=== PATIENT | female | born 1960 | race Caucasian/White ===

== ENCOUNTER 2019-10-02 14:22 | Outpatient (CLI) | payer SELFPAY ==
--- NOTE | 2019-10-02 | MR_ITS ---
WS: [id number] MRI CERVICAL SPINE HISTORY: HYPERREFLEXIA COMPARISON: None available. Normal cervical alignment with no compression fracture or significant disc space narrowing. Signal within the cervical cord is normal. Visualized posterior fossa is unremarkable. Craniocervical junction, C1 and C2 relationship, odontoid process and soft tissues are normal. C2-C3: Normal. C3-C4: Very mild osteophytic ridging and shallow central disc protrusion. No stenosis. C4-C5: Normal. C5-C6: Mild osteophytic ridging without stenosis. C6-C7: Mild osteophytic ridging with a shallow central disc protrusion. No stenosis. C7-T1: Normal. Small bilateral foraminal disc protrusions at T3-4 without stenosis. MR/MR cervical spin wo con* [id number] IMPRESSION: 1. No significant stenosis or fracture. 2. Small disc protrusions as above. No cord contact or significant foraminal s tenosis.
== END 2019-10-02 14:23 | disposition home or self-care (01) ==
LOC: RADSHAW 14:23
PROVIDERS: Family Provider Internal Medicine; PCP Internal Medicine; Visit Provider Internal Medicine
DX: R29.2 Abnormal reflex (principal); M50.223 Other cervical disc displacement at C6-C7 level
CPT/HCPCS: 72141

== ENCOUNTER → 2020-11-01 10:39 | Outpatient (BNVA) | payer OTHER, SELFPAY | PROVIDERS: Family Provider Internal Medicine; PCP Internal Medicine; Visit Provider Surgery | DX: Z01.812 Encounter for preprocedural laboratory examination (principal); Z20.822 Contact with and (suspected) exposure to COVID-19 | CPT/HCPCS: 87635 ==

== ENCOUNTER 2020-11-07 07:26 | Day surgery (SDC) | payer SELFPAY ==
--- NOTE | 2020-11-07 07:36 | ANES.PREANE2 ---
Pre-Anesthetic Assessment Pre-Anesthetic Assessment: Height/Weight: Height 1.47 m Weight 51.71 kg Preop Diagnosis: screening Proposed Procedure: Operation Date: 11/07/20 09:00 Proposed Procedures p Colonoscopy 45771 Z12.11(Not Applicable) - Marcus Lomeli MD Familial anesthetic complications: None Was Beta Dorian taken within 24 hours: N/A Was Clonidine taken within 24 hours: N/A Last intake: > 8 hrs Social: Social History: No alcohol and No tobacco Exam: Pre-Anes Outpt Exam: alert, oriented x 3, clear to auscultation bilaterally and regular rate & rhythm Airway: Cervical ROM: WNL MP: 3 Dentition: Other (missing) GI: Comments: divertilitis hx Metabolic: Metabolic: Thyroid Anesthetic Plan: ASA status: 2 Anesthesia: MAC Risk of > 500 ml blood loss (7ml/kg in children): No PFSH Anesthesia PFSH: Medical History (Updated 07/03/19 @ 13:16 by Saturnino Mccarthy MD) Diverticula of colon Hypothyroidism Surgical History (Updated 07/03/19 @ 13:05 by Saturnino Mccarthy MD) History of section, classical Family History Family/Other Cancer Colon Social History Smoking and tobacco status: never smoked Alcohol intake: never Lives independently: Yes Household members: spouse Marital status: Current occupational status: employed History of recent travel: No Current gender identity: Female Data Anesthesia Cardiac Studies: No Data to Display
[2020-11-07 07:58] VITALS: BP 129/87; PULSE 93; RESP 18; TEMP 36.1; O2SAT 98
[2020-11-07] MEDS: sodium chloride 0.9% 1,000 ML 30 ML IV (08:13)
--- NOTE | 2020-11-07 09:34 | P.HP_ITS ---
Same Day Surgery H&P Indication for Procedure/HPI DATE OF PROCEDURE: November 07, 2020 CHIEF COMPLAINT/INDICATIONFOR SURGICAL PROCEDURE: screening colonoscopy PREOP DIAGNOSIS: screening colonoscopy PLANNED PROCEDRUE: Operation Date: 11/07/20 09:00 Proposed Procedures p Colonoscopy 32537 Z12.11(Not Applicable) - Marcus Lomeli MD Medications/Allergies* Home Medications Medication Instructions Recorded Confirmed Type levothyroxine 88 mcg tablet 88 mcg PO DAILY 07/03/19 11/07/20 History Allergies/Adverse Reactions Allergy/AdvReac Type Severity Reaction Status Date / Time No Known Allergies Allergy Unverified 10/02/20 13:33 Current Medications: Generic Name Dose Route Start Last Admin Trade Name Freq PRN Reason Stop Dose Admin Sodium Chloride 1,000 mls @ 30 mls/hr 11/07/20 08:00 11/07/20 08:13 Sodium Chloride 0.9% IV 11/08/20 07:59 30 mls/hr .Q24H RASHEEDA Administration Pertinent History/Comorbid Conditions* Medical History (Updated 07/03/19 @ 13:16 by Saturnino Mccarthy MD) Diverticula of colon Hypothyroidism Surgical History (Updated 07/03/19 @ 13:05 by Saturnino Mccarthy MD) History of section, classical Family History (Updated 07/03/19 @ 12:16 by Marina Osorio LPN) Cancer Family/Other Colon Social History Smoking and tobacco status: never smoked Alcohol intake: never Lives independently: Yes Household members: spouse Marital status: Current occupational status: employed History of recent travel: No Current gender identity: Female Pertinent Exam Findings alert, oriented x 3 and regular rate & rhythm Recommendations Surgery/Procedure today Coding Level of Care Code Acute Tool Profiling Machine Set Up Operator for Brooke Sutherland
[2020-11-07 10:15] VITALS: BP 117/87; PULSE 99; RESP 18; TEMP 36.4; O2SAT 96
[2020-11-07 10:28] VITALS: BP 123/69; PULSE 100; RESP 18; TEMP 36.6; O2SAT 95
== END 2020-11-07 11:18 | disposition home or self-care (01) ==
PROVIDERS: PCP Internal Medicine; Visit Provider Surgery
PROC: 0DJD8ZZ Inspection of Lower Intestinal Tract, Via Natural or Artificial Opening Endoscopic (ICD-10-PCS; CPT 45378; principal; 2020-11-07 09:00)
DX: Z12.11 Encounter for screening for malignant neoplasm of colon (principal); K57.32 Diverticulitis of large intestine without perforation or abscess without bleeding; E03.9 Hypothyroidism, unspecified
CPT/HCPCS: 45330; 96360; 96361; J2704; J7030

== ENCOUNTER 2020-11-20 08:09 | Outpatient (CLI) | payer SELFPAY ==
--- NOTE | 2020-11-20 08:54 | XR_ITS ---
WS: [id number] ABDOMEN KUB CLINICAL INFORMATION: Constipation. Incomplete colonoscopy. PreBarium enema. COMPARISON: None. FINDINGS: Normal bowel gas pattern. Scattered air normal caliber small and large bowel. Moderate fecal retentio n within the left descending colon and proximal sigmoid colon. XR/XR KUB [id number] Impression: 1. Moderate constipation in the left colon and sigmoid colon. 2. Otherwise normal bowel gas pattern.
== END 2020-11-20 08:10 | disposition home or self-care (01) ==
PROVIDERS: PCP Internal Medicine; Visit Provider Surgery
DX: K56.699 Other intestinal obstruction unspecified as to partial versus complete obstruction (principal); K59.00 Constipation, unspecified
CPT/HCPCS: 74018; 74270

== ENCOUNTER 2020-11-21 08:06 | Outpatient (CLI) | payer SELFPAY ==
--- NOTE | 2020-11-21 08:33 | FL_ITS ---
WS: [id number] Gastrografin enema, 11/21/2020 Clinical Data: STRICTURE OF SIGMOID COLON Comparison: None. Fluoroscopy time: 2.2 minutes Findings: Gastrografin was introduced in a retrograde fashion to fill the entire colon. The cecum was well outl ined. There was reflux into the small bowel. There were polyps and narrowing of the sigmoid colon. Th ere is a significant narrowing of 2 cm at the junction of the descending colon and sigmoid colon. Thi s narrowing could represent a stricture from diverticulitis or a sigmoid cancer. The postevacuation f ilm was unremarkable. There is contrast material within the kidneys. FL/FL barium enema [id number] Impression: 1. 2 cm narrowing of the junction of the descending colon and sigmoid colon whi ch could represent a stricture from diverticulitis or a cancer of the colon. 2. Sigmoid diverticula.
[2020-11-21] MEDS: diatrizoate meglumine 120 mL Sol PR (12:36)
== END 2020-11-21 08:07 | disposition home or self-care (01) ==
LOC: RAD 08:08
PROVIDERS: PCP Internal Medicine; Visit Provider Surgery
DX: K56.699 Other intestinal obstruction unspecified as to partial versus complete obstruction (principal); K57.30 Diverticulosis of large intestine without perforation or abscess without bleeding
CPT/HCPCS: 74270

== ENCOUNTER 2020-11-28 08:01 | Outpatient (CLI) | payer MEDICAID, SELFPAY ==
[2020-11-28] MEDS: iohexol 300 mg/mL 50 mL Btl PO (08:25)
--- NOTE | 2020-11-28 09:30 | CT_ITS ---
WS: [id number] CT ABDOMEN AND PELVIS WITH CONTRAST HISTORY: K56.699 - Other intestinal obstruction unspecified, possible stricture. TECHNIQUE: Imaging performed of the abdomen and pelvis with IV contrast. Single phase imaging of the abdomen. Coronal and sagittal reformats are submitted. All CT scans at [facility] use at least one of these dose optimization techniques: automated exposure control; mA and/or kV adjustment per patient size (includes targeted exams where dose is matched to clinical indication); or iterativ e reconstruction. IV CONTRAST: Omnipaque 300; 75 mL IV. Oral contrast: Yes. DLP: 851.12 mGycm COMPARISON: 11/21/2020 and 11/29/2017 Lower thorax: Lung bases are clear. Heart is normal size. Small hiatal hernia. Liver/biliary system: Normal size liver. Hepatic steatosis along the falciform ligament. Gallbladder: Normal. No gallstones or wall thickening. No pericholecystic fluid. Pancreas: Normal size pancreas and pancreatic duct. No adjacent inflammation. Spleen: Normal size spleen with several granulomata. Adrenal glands: Normal. Right kidney: Normal. Left kidney: Normal. Aorta: Normal. Lymphadenopathy: None. Free fluid: None. GI tract: Appendix is not identified. There is moderate diffuse constipation and fecal retention. Num erous diverticula in the descending and sigmoid colon. There is circumferential wall thickening invol ving a short segment of the sigmoid colon. This corresponds to the area seen by recent barium enema. The lumen is narrowed. The wall thickening is asymmetric. Abdominal wall: Unremarkable abdominal wall. No hernia. Pelvis: Normal size uterus. No free fluid or adenopathy. No mass. Bones: Unremarkable. CT/CT abdomen pelvis w con* [id number] IMPRESSION: 1. Sigmoid diverticulosis with asymmetric wall thickening. The wall thickening could be due to early neoplasm or chronic changes of diverticulosis. This area should be readily visible with colonoscopy. 2. No ascites or adenopathy. 3. Diffuse moderate constipation and fecal retention.
[2020-11-28] MEDS: iohexol 300 mg/mL 100 mL Btl IV (09:35)
== END 2020-11-28 08:02 | disposition home or self-care (01) ==
LOC: RADWPI 08:02
PROVIDERS: PCP Internal Medicine; Visit Provider Surgery
DX: K56.699 Other intestinal obstruction unspecified as to partial versus complete obstruction (principal); K57.30 Diverticulosis of large intestine without perforation or abscess without bleeding; K59.00 Constipation, unspecified
CPT/HCPCS: 74177; Q9967

== ENCOUNTER → 2021-01-02 11:31 | Outpatient (BNVA) | payer MEDICAID, SELFPAY | PROVIDERS: PCP Internal Medicine; Visit Provider Surgery | DX: K56.699 Other intestinal obstruction unspecified as to partial versus complete obstruction (principal); Z20.822 Contact with and (suspected) exposure to COVID-19 | CPT/HCPCS: 87635 ==

== ENCOUNTER → 2021-01-21 12:58 | Outpatient (BNVA) | payer MEDICAID, SELFPAY | PROVIDERS: PCP Internal Medicine; Visit Provider Surgery | DX: K56.699 Other intestinal obstruction unspecified as to partial versus complete obstruction (principal); Z20.822 Contact with and (suspected) exposure to COVID-19 | CPT/HCPCS: 87635 ==

== ENCOUNTER 2021-01-27 11:45 | Inpatient (IN) | payer MEDICAID, SELFPAY ==
[2021-01-24 09:06] VITALS: BMI 24.0
[2021-01-27] VITALS (26 sets, daily range): BP systolic 107–136; BP diastolic 58–86; PULSE 68–87; RESP 12–22; TEMP 36.3–37.2; O2SAT 94–100; BMI 24.0
--- NOTE | 2021-01-27 06:33 | ANES.PREANE2 ---
Pre-Anesthetic Assessment Pre-Anesthetic Assessment: Height/Weight: Height 1.47 m Weight 52.163 kg Temp Pulse Resp BP Pulse Ox 97.3 F L 72 16 115/80 96 01/27/21 06:13 01/27/21 06:13 01/27/21 06:13 01/27/21 06:13 01/27/21 06:13 Preop Diagnosis: sigmoid stricture Proposed Procedure: Operation Date: 01/27/21 07:00 Proposed Procedures p Laparoscopic Sigmoidectomy 09421 K56.699(Not Applicable) - Marcus Lomeli MD Familial anesthetic complications: None Was Beta Dorian taken within 24 hours: N/A Was Clonidine taken within 24 hours: N/A Last intake: Intake Last Liquid Date 01/26/21 Last Liquid Time 22:00 Last Solid Date 01/25/21 Last Solid Time 12:00 Social: Social History: No alcohol and No tobacco Exam: Pre-Anes Outpt Exam: alert, oriented x 3, clear to auscultation bilaterally and regular rate & rhythm Airway: Cervical ROM: WNL MP: 2 Dentition: Other (missing) Metabolic: Metabolic: Thyroid Anesthetic Plan: ASA status: 3 Anesthesia: General Risk of > 500 ml blood loss (7ml/kg in children): No PFSH Anesthesia PFSH: Medical History Diverticula of colon Hypothyroidism Surgical History H/O flexible sigmoidoscopy (11/07/20) History of section, classical Family History Family/Other Cancer Colon Social History Alcohol intake: never Lives independently: Yes Household members: spouse Marital status: Current occupational status: employed History of recent travel: No Current gender identity: Female Data Anesthesia Cardiac Studies: No Data to Display
[2021-01-27] MEDS: sodium chloride 0.9% 1,000 ML 30 ML IV (06:50)
[2021-01-27 06:55] LABS: Basophils % 0.7 %; Eosinophils # 0.1 10^3/uL (0.0-0.8); Eosinophils % 1.9 %; Hematocrit 40.7 % (37.0-47.0); Hemoglobin 13.1 g/dL (11.5-15.3); Lymphocytes % 33.1 %; Mean Corpuscular HGB Conc 32.2 g/dL (30.0-36.0); Mean Corpuscular Hemoglobin 30.3 pg (28.0-34.0); Mean Platelet Volume 9.9 fL (7.4-10.4); Monocytes # 0.5 10^3/uL (0.2-0.9); Monocytes % 8.6 %; Neutrophils # 3.27 10^3/uL (1.8-7.7); Neutrophils % 55.4 %; Nucleated Red Blood Cells % 0 %; Platelet Count 277 10^3/cmm (130-400); Red Blood Count 4.33 10^6/uL (4.1-5.3); Red Cell Distribution Width 12.3 % (12.1-15.1); White Blood Count 5.9 10^3/uL (4.0-10.0)
--- NOTE | 2021-01-27 06:55 | P.HP_ITS ---
Providers/Chief Complaint Admitting Physician: Armani Primary Care Provider: Aida Gutiérrez MD Chief Complaint: sigmoidectomy History of Present Illness Roselia Leahy is a 60 year old female who had undergone a screening colonoscopy and I could not pass the colonoscope past 20 cm. A subsequent barium enema and CT abdomen pelvis had shown a stricture in the sigmoid colon. Patient continues to have constipation where she has 1 bowel movement a day whereas previously she is to have daily bowel movement Review of Systems General: Reports: 10 or more systems reviewed and unremarkable except in HPI and below Medications/Allergies Home Medications Medication Instructions Recorded Confirmed Last Taken Type levothyroxine 88 mcg tablet 88 mcg PO DAILY 07/03/19 01/27/21 01/26/21 History erythromycin 500 mg tablet 500 mg PO ONCE #3 tab 01/03/21 01/27/21 01/26/21 Rx neomycin 500 mg tablet 1 g PO ONCE #6 tab 01/03/21 01/27/21 01/26/21 Rx Allergies Allergy/AdvReac Type Severity Reaction Status Date / Time No Known Allergies Allergy Verified 01/27/21 06:10 PFSH PFSH: Medical History Diverticula of colon Hypothyroidism Surgical History H/O flexible sigmoidoscopy (11/07/20) History of section, classical Family History Family/Other Cancer Colon Social History Alcohol intake: never Lives independently: Yes Household members: spouse Marital status: Current occupational status: employed History of recent travel: No Current gender identity: Female Dietary Habits: Caffeine: Yes Caffeine intake frequency: coffee Number of coffee servings: 6 Vital Signs Vitals Signs: Last Vital Signs Temp 97.3 F L 01/27/21 06:13 Pulse 72 01/27/21 06:13 Resp 16 01/27/21 06:13 BP 115/80 01/27/21 06:13 Pulse Ox 96 01/27/21 06:13 Physical Exam Narrative: EXAM NARRATIVE: HEENT: Normocephalic Eye: Sclera /conjunctiva normal Abdomen: Soft to palpation Neurological: Oriented to place person and time Skin: Intact, no lesions appreciated on gross exam A&P Assessment and plan (1) Stricture of sigmoid colon: Plan for laparoscopic possible open sigmoid colectomy under general anesthesia Procedure, risks, benefits and alternatives have been discussed with the patient who wishes to proceed with surgery. Status: Acute Coding Level of Care Code Acute Baton Twirler for [facility] Fwd Diagnoses Stricture of sigmoid colon K56.699
[2021-01-27] MEDS: metroNIDAZOLE IV 500 MG/100 ML PREMIX 100 MG IV ×2 (07:05→15:04)
[2021-01-27 07:44] LABS: Carcinoembryonic Antigen 3.3 ng/mL (0.0-4.7)
--- NOTE | 2021-01-27 08:58 | SUR.OPER ---
0750 updated of surgical status. 0859 updated of surgical status.
--- NOTE | 2021-01-27 10:08 | SUR.OPER ---
updated of surgical status
--- NOTE | 2021-01-27 10:40 | PM.OP ---
Operative Report Date of procedure: January 27, 2021 Pre-op Diagnosis: Sigmoid stricture Post-op Diagnosis: Sigmoid stricture No evidence of peritoneal carcinomatosis or liver metastasis Procedure Done: Laparoscopic sigmoid colectomy with 29 mm stapled EEA stapled anastomosis Flexible sigmoidoscopy Specimens removed/disposition: 1. Sigmoid colon, stapled and distal 2. Proximal donut from EEA anastomosis 3. Distal donut from EEA anastomosis Surgeon: Marcus Lomeli Anesthesia: General Estimated blood loss (mL): 25 IV fluids (mL): 1,000 Urine output (mL): 200 Procedure: The patient was taken to the operating room, intubated under general anesthesia after IV antibiotic had been administered. The patient was placed in modified lithotomy position with shoulder support and the Paulson catheter was placed. The rectum was irrigated with diluted Betadine using red rubber catheter. The abdomen and the perineum was prepped and draped in a sterile manner. Using a 15 blade, a midline supraumbilical incision was made and using open Young technique the peritoneal cavity was entered, 12 mm port was placed and 15 mm of pneumoperitoneum was created. A 10 mm 30? scope was introduced. 5 mm ports were placed in the left lower quadrant and at the level of the umbilicus on the right side under direct visualization in the midclavicular line and and a 12 mm port was placed in the right lower quadrant. Examination of the colon revealed a a mass within the sigmoid colon which was adherent to the uterus, right fallopian tube and ovary, no signs of liver lesions or peritoneal carcinomatosis. The patient was placed in steep Trendelenburg position and rotated to the right in order to place a small bowel loops in the right upper quadrant. The transverse colon was retracted superiorly. Using electrocautery and sharp dissection the adherent sigmoid colon was freed from the right ovary and fallopian tube as well as the abdominal wall. The inferior mesenteric artery was identified near its takeoff by retracting on the sigmoid colon anteriorly. The peritoneum opened and dissection was carried posterior to the artery until the ureter was identified. A medial to lateral dissection of the sigmoid mesocolon was performed. There were adhesions of the sigmoid colon to the abdominal wall which were taken down. The line of Toldt was opened along the descending colon up to the splenic flexure and the avascular plane was entered to mobilize the descending colon medially. The sigmoid mesocolon was divided using Endo ALHAJI device down to the proximal rectum to ensure there was at least 5 cm distal margin. 2 loads of 45 mm blue load [place] ALHAJI stapler was introduced through the right lower quadrant port to divide the rectum distally. At this point it appeared that the descending colon reached up to the rectum and the midline umbilical incision was extended up the pneumoperitoneum was released and a wound protector was placed and the divided sigmoid colon was exteriorized. A noncrushing bowel clamps were placed in the descending colon and an Autosuture pursestring was placed and the colon was divided and the specimen removed from the operating field. Serial anal dilators were used and it was decided to proceed with the 29 mm EEA stapler. The anvil of the EEA stapler was introduced into the descending colon and tied down. The colon was introduced into the peritoneal cavity and the pneumoperitoneum was recreated. 20 cc of saline mixed with 20 cc of Exparel mixed in 20cc of 0.5% Marcaine was infiltrated under laparoscopic visualization bilaterally for a TAP block as well as around the umbilical incision. The anus was digitally dilated and the EEA stapler was introduced through the anal canal and the trocar passed through the previously created staple line and attached to the anvil after ensuring that there was no twisting of the mesentery. The EEA stapler was fired to create the stapled 29 mm end-to-end anastomosis and 2 intact doughnuts were retrieved which were sent as proximal margin and distal margin. A colonoscope was introduced and passed beyond the anastomosis into the descending colon and air leak test was negative. There was no bleeding noted from the staple line. Anastomosis was around 12 cm from the anal verge. There was no significant bleeding noted from the staple line. The colonoscope was withdrawn. All 4 ports were removed under direct visualization and the fascia the midline was closed using #1 loop PDS. The fascia of the right lower quadrant port was closed using [id number] 0 Vicryl suture. The subcutaneous tissue was approximated using 3-0 Vicryl suture and skin was closed using running subcuticular 4-0 Monocryl suture and Dermabond. The patient was subsequently extubated and transferred to recovery room with a Paulson catheter in place.
--- NOTE | 2021-01-27 10:57 | P.PCN_ITS ---
PACU note PACU note: VSS, Good respiratory effort, report to CELL ASSEMBLY PINNER Post-Anesthesia Exam: awake
--- NOTE | 2021-01-27 10:57 | PM.PACU ---
PACU note PACU note: VSS, Good respiratory effort, report to RECYCLE COORDINATOR Post-Anesthesia Exam: awake
[2021-01-27] MEDS: fentaNYL 50 mcg/mL INJ 2mL IVP ×2 (11:17→11:24)
[2021-01-27] MEDS: D5-NS 0.45% + KCL 20 mEq 20 MEQ/1,000 ML BAG 100 MEQ IV (15:02)
[2021-01-27] MEDS: famotidine 20 mg/2 mL INJ IVP (15:07)
[2021-01-27] MEDS: morphine 4 mg/mL SDV 1 mL 3 MG IVP ×2 (15:12→18:38)
--- NOTE | 2021-01-27 16:00 | ANE.PACU2 ---
Inpatient post-anesthesia follow up: Airway intact: Yes Vital signs: Temperature 97.4 F Pulse Rate 76 Respiratory Rate 16 Blood Pressure 132/67 Pulse Oximetry 94 Oxygen Delivery Me thod Room Air Oxygen Flow Rate 6 Fraction of Inspir ed Oxygen Hydration adequate: Yes Nausea and vomiting: No Pain level: 2 Mental status: Baseline
[2021-01-27] MEDS: sennosides-docusate Tablet 1 TAB PO (17:58)
[2021-01-28] VITALS (7 sets, daily range): BP systolic 100–134; BP diastolic 58–85; PULSE 54–89; RESP 18–22; TEMP 36.6–37; O2SAT 93–98
[2021-01-28] MEDS: metroNIDAZOLE IV 500 MG/100 ML PREMIX 100 MG IV ×4 (00:03→23:55)
[2021-01-28 02:25] LABS: Basophils % 0.2 %; Hematocrit 34.5 % (37.0-47.0); Hemoglobin 10.9 g/dL (11.5-15.3); Lymphocytes % 7.8 %; Mean Corpuscular HGB Conc 31.6 g/dL (30.0-36.0); Mean Corpuscular Hemoglobin 30.4 pg (28.0-34.0); Mean Corpuscular Volume 96.1 fl (81-99); Mean Platelet Volume 9.6 fL (7.4-10.4); Monocytes # 0.7 10^3/uL (0.2-0.9); Monocytes % 5.2 %; Neutrophils # 11.47 10^3/uL (1.8-7.7); Neutrophils % 86.5 %; Nucleated Red Blood Cells % 0 %; Platelet Count 209 10^3/cmm (130-400); Red Blood Count 3.59 10^6/uL (4.1-5.3); Red Cell Distribution Width 12.6 % (12.1-15.1); White Blood Count 13.3 10^3/uL (4.0-10.0)
[2021-01-28 02:42] LABS: Anion Gap 14.5 (5-19); Blood Urea Nitrogen 6 mg/dL (6-20); Calcium 8.5 mg/dL (8.5-10.5); Carbon Dioxide 23 mmol/L (22-29); Chloride 105 mmol/L (98-107); Glomerular Filtration Rate 102.3 mL/min (90-130); Glucose 171 mg/dL (65-115); Osmolality Calculated 288 mOsm/kg (285-295); Potassium 4.5 mmol/L (3.5-5.1); Sodium 138 mmol/L (136-145)
[2021-01-28] MEDS: famotidine 20 mg/2 mL INJ IVP ×2 (04:21→15:19)
[2021-01-28] MEDS: ondansetron 2 mg/ML SDV 2 mL 4 MG IVP (04:21)
[2021-01-28] MEDS: HYDROcodone-acetaminophen 5-325 mg Tablet 1 TAB PO ×2 (04:21→15:19)
[2021-01-28] MEDS: D5-NS 0.45% + KCL 20 mEq 20 MEQ/1,000 ML BAG 100 MEQ IV ×2 (04:22→15:19)
[2021-01-28] MEDS: morphine 4 mg/mL SDV 1 mL 3 MG IVP ×2 (04:27→08:10)
--- NOTE | 2021-01-28 07:51 | PM.PN ---
Subjective Subjective: Interval history: patient has been doing well, denies nausea, vomiting, flatus or BM, slept a few hours last night Vitals/I&O/Wt Last Vital Signs Temp 98.4 F 01/28/21 04:27 Pulse 76 01/28/21 04:27 Resp 18 01/28/21 04:27 BP 134/79 01/28/21 04:27 Pulse Ox 97 01/28/21 04:27 01/27/21 01/28/21 01/28/21 22:59 06:59 14:59 Intake Total 520 / 3830 1150 / 3830 Output Total 120 / 1545 1000 / 1545 Balance 400 / 2285 150 / 2285 Weight last 48 hrs Weight 115 lb Physical Exam Narrative: EXAM NARRATIVE: Abdomen soft, nontender distended, tender, incision clean dry and intact Urinary Catheter Management^: Paulson: Cath Placed During This Visit: yes Urinary Catheter Date of Insertion: 01/27/21 Urinary Catheter Time of Insertion: 07:30 Data : 01/28/21 02:10 01/28/21 02:10 A&P Assessment and plan (1) S/P laparoscopic-assisted sigmoidectomy: With postop ileus DC IV fluids WBC 13.3, afebrile: Continue IV Ancef and Flagyl since there was inflammation noted in the sigmoid colon DC Paulson Start clear liquid diet Ambulate ad amador. Lovenox SCD for DVT prophylaxis Pepcid for GI prophylaxis Patient will need greater than 2 nights of inpatient stay to ensure resolution of ileus and rule out complications Status: Acute Attestations Medical Necessity Statement*: Postop requiring continued inpatient stay Coding Level of Care Code Acute Community Affairs Manager for Chg Fwd Diagnoses S/P laparoscopic-assisted sigmoidectomy Z90.49
[2021-01-28] MEDS: sennosides-docusate Tablet 1 TAB PO ×2 (08:18→17:23)
--- NOTE | 2021-01-28 08:32 | PC.NURSE ---
Catheter removed at 0833. 1700 mL drained from bag prior to removal of catheter. Urine color was clear and yellow. 10 mL removed from bulb of catheter. Patient tolerated removal very well. Tip of catheter intact, No discoloration.
--- NOTE | 2021-01-28 08:53 | PC.CHAP ---
Pastoral Care Encounter/Spiritual Assessment Type of Contact [] Declined director geophysical laboratory visit [] Patient/Family/Request visit [] Outpatient visit [] Follow-up visit [] Physician referral [] Code/Alert [x] Routine visit [] Staff referral [] Actively dying [] Patient sleeping [] Family support [] [] Out of room [] Palliative care [] [] Receiving care in room [] Pre-surgical visit [] Trauma [] Long length of stay [] ICU visit [] Other: Relational/Emotional Strength [x] Patient feels connected with others/family/visitors/staff [] Distress [] Loneliness/isolation [] Abandonment Spirituality of Patient [x] Person of Noemy [] Attends Episcopalian of their Noemy [x] Believes in Prayer [] Reads Bible or Mormon materials [] There are Spiritual issues to be addressed Desktop Analyst Interventions x[x] Prayer [] Active listening [] Non-anxious presence [] Spiritual/emotional support [] Crisis/trauma care [x] Spiritual counseling [] Bereavement support [] Provided bereavement packet [] Provided Bible/devotional materials [] Provided toy/stuffed animal, coloring book to patient or family member [] Provided Communion [] Anointing/[place] [] Salvation x[] Completed spiritual assessment [] Other: Impact on Illness or Injury [] Angry [] Fearful [] Anxious [] Often cries [] Exhaustion [] Unable to work [] Unable to attend jehovah's witness [] Unable to walk/stand [] Unable to read [] Unable to drive [] Unable to eat/drink [] Unable to sleep [] Unable to be with family [] Patient intubated [] Other: Summary Time spent with patient 15 min
[2021-01-28] MEDS: enoxaparin 40 mg/0.4 mL Syringe SUBCUT (08:56)
--- NOTE | 2021-01-28 17:28 | PC.NURSE ---
ambulate pt walked 2 xs north and south stations
[2021-01-29] VITALS (7 sets, daily range): BP systolic 102–135; BP diastolic 61–81; PULSE 65–81; RESP 16–18; TEMP 36.6–37.1; O2SAT 95–97
[2021-01-29] MEDS: HYDROcodone-acetaminophen 5-325 mg Tablet 1 TAB PO ×3 (00:02→16:36)
[2021-01-29 03:21] LABS: Basophils % 0.1 %; Eosinophils % 0.3 %; Hematocrit 30.5 % (37.0-47.0); Hemoglobin 9.7 g/dL (11.5-15.3); Lymphocytes # 2.3 10^3/uL (0.8-4.8); Lymphocytes % 21.3 %; Mean Corpuscular HGB Conc 31.8 g/dL (30.0-36.0); Mean Corpuscular Hemoglobin 30.4 pg (28.0-34.0); Mean Corpuscular Volume 95.6 fl (81-99); Mean Platelet Volume 10.3 fL (7.4-10.4); Monocytes # 0.5 10^3/uL (0.2-0.9); Monocytes % 4.9 %; Neutrophils # 7.95 10^3/uL (1.8-7.7); Nucleated Red Blood Cells % 0 %; Platelet Count 198 10^3/cmm (130-400); Red Blood Count 3.19 10^6/uL (4.1-5.3); Red Cell Distribution Width 12.9 % (12.1-15.1); White Blood Count 10.9 10^3/uL (4.0-10.0)
[2021-01-29 03:37] LABS: Anion Gap 12.2 (5-19); Blood Urea Nitrogen 5 mg/dL (6-20); Calcium 8.5 mg/dL (8.5-10.5); Carbon Dioxide 27 mmol/L (22-29); Chloride 104 mmol/L (98-107); Glomerular Filtration Rate 85.6 mL/min (90-130); Glucose 107 mg/dL (65-115); Osmolality Calculated 286 mOsm/kg (285-295); Potassium 4.2 mmol/L (3.5-5.1); Sodium 139 mmol/L (136-145)
[2021-01-29] MEDS: D5-NS 0.45% + KCL 20 mEq 20 MEQ/1,000 ML BAG 100 MEQ IV ×2 (04:05→14:23)
[2021-01-29] MEDS: famotidine 20 mg/2 mL INJ IVP ×2 (04:34→16:18)
[2021-01-29] MEDS: metroNIDAZOLE IV 500 MG/100 ML PREMIX 100 MG IV ×2 (07:42→14:54)
[2021-01-29] MEDS: ondansetron 2 mg/ML SDV 2 mL 4 MG IVP (08:12)
--- NOTE | 2021-01-29 10:09 | P.PN_ITS ---
Subjective Subjective: Interval history: Patient feels a bit nauseated today, denies significant abdominal pain, no flatus or BM Vitals/I&O/Wt Last Vital Signs Temp 98 F 01/29/21 07:39 Pulse 69 01/29/21 07:39 Resp 18 01/29/21 07:39 BP 131/74 01/29/21 07:39 Pulse Ox 96 01/29/21 07:39 01/28/21 01/29/21 01/29/21 22:59 06:59 14:59 Intake Total 160 / 3740 1280 / 3740 100 / 100 Output Total 1000 / 3200 500 / 3200 1000 / 1000 Balance -840 / 540 780 / 540 -900 / -900 Weight last 48 hrs Weight 115 lb Physical Exam Narrative: EXAM NARRATIVE: Abdomen: Soft, tender, mildly distended, incision clean dry and intact Urinary Catheter Management^: Paulson: Cath Placed During This Visit: yes, but has since been removed by the nurse Reason for Continuing Indwelling Catheter: Decision to DC Catheter Urinary Catheter Date of Insertion: 01/27/21 Urinary Catheter Time of Insertion: 07:30 Date Urinary Catheter Removed: 01/28/21 Time Urinary Catheter Discontinued: 08:37 Data : 01/29/21 02:15 01/29/21 02:15 A&P Assessment and plan (1) S/P laparoscopic-assisted sigmoidectomy: With postop ileus WBC down to 10.9, afebrile: Continue IV Ancef and Flagyl since there was inflam mation noted in the sigmoid colon Start clear liquid diet Ambulate ad amador. Lovenox SCD for DVT prophylaxis Pepcid for GI prophylaxis Patient will need greater than 2 nights of inpatient stay to ensure resolution of ileus and rule out complications Status: Acute Attestations Medical Necessity Statement*: Status post sigmoid colectomy requiring continued inpatient stay to ensure resolution of ileus Coding Level of Care Code Acute Trail Maintenance Worker for Ch[facility] Fwd Diagnoses S/P laparoscopic-assisted sigmoidectomy Z90.49
[2021-01-29] MEDS: enoxaparin 40 mg/0.4 mL Syringe SUBCUT (10:18)
[2021-01-29] MEDS: sennosides-docusate Tablet 1 TAB PO ×2 (10:21→18:35)
--- NOTE | 2021-01-29 11:27 | PC.NURSE ---
She has no pain if she lays completely still, but reports a pain level of 7/10 if she is moving.
[2021-01-29] MEDS: morphine 4 mg/mL SDV 1 mL 3 MG IVP (14:18)
[2021-01-30] VITALS (7 sets, daily range): BP systolic 110–129; BP diastolic 66–75; PULSE 60–110; RESP 12–18; TEMP 36.6–36.9; O2SAT 95–98
[2021-01-30] MEDS: metroNIDAZOLE IV 500 MG/100 ML PREMIX 100 MG IV ×2 (00:22→07:59)
[2021-01-30] MEDS: morphine 4 mg/mL SDV 1 mL 3 MG IVP (00:56)
[2021-01-30] MEDS: D5-NS 0.45% + KCL 20 mEq 20 MEQ/1,000 ML BAG 100 MEQ IV ×2 (00:57→10:17)
[2021-01-30 03:14] LABS: Basophils % 0.4 %; Eosinophils # 0.1 10^3/uL (0.0-0.8); Eosinophils % 1.3 %; Hematocrit 34.3 % (37.0-47.0); Hemoglobin 10.7 g/dL (11.5-15.3); Lymphocytes # 1.3 10^3/uL (0.8-4.8); Lymphocytes % 16.8 %; Mean Corpuscular HGB Conc 31.2 g/dL (30.0-36.0); Mean Corpuscular Hemoglobin 30.7 pg (28.0-34.0); Mean Corpuscular Volume 98.6 fl (81-99); Mean Platelet Volume 10.1 fL (7.4-10.4); Monocytes # 0.5 10^3/uL (0.2-0.9); Monocytes % 6.8 %; Neutrophils # 5.54 10^3/uL (1.8-7.7); Neutrophils % 74.3 %; Nucleated Red Blood Cells % 0 %; Platelet Count 199 10^3/cmm (130-400); Red Blood Count 3.48 10^6/uL (4.1-5.3); Red Cell Distribution Width 13.1 % (12.1-15.1); White Blood Count 7.5 10^3/uL (4.0-10.0)
[2021-01-30 03:45] LABS: Anion Gap 12.2 (5-19); Blood Urea Nitrogen 4 mg/dL (6-20); Calcium 9.2 mg/dL (8.5-10.5); Carbon Dioxide 30 mmol/L (22-29); Chloride 104 mmol/L (98-107); Glomerular Filtration Rate 85.6 mL/min (90-130); Glucose 110 mg/dL (65-115); Osmolality Calculated 292 mOsm/kg (285-295); Potassium 4.2 mmol/L (3.5-5.1); Sodium 142 mmol/L (136-145)
[2021-01-30] MEDS: famotidine 20 mg/2 mL INJ IVP (04:41)
[2021-01-30] MEDS: HYDROcodone-acetaminophen 5-325 mg Tablet 1 TAB PO ×3 (06:29→18:26)
[2021-01-30] MEDS: sennosides-docusate Tablet 1 TAB PO ×2 (08:00→17:11)
[2021-01-30] MEDS: enoxaparin 40 mg/0.4 mL Syringe SUBCUT (10:17)
--- NOTE | 2021-01-30 13:07 | P.PN_ITS ---
Subjective Subjective: Interval history: Patient has some abdominal pain with nausea but no vomiting, tolerating full liquid diet, passing flatus, no BM Vitals/I&O/Wt Last Vital Signs Temp 98.4 F 01/30/21 07:28 Pulse 65 01/30/21 07:28 Resp 16 01/30/21 07:28 BP 110/66 01/30/21 07:28 Pulse Ox 97 01/30/21 07:28 01/29/21 01/30/21 01/30/21 22:59 06:59 14:59 Intake Total 200 / 2351.667 1001.667 / 2351.667 1295.000 / 1295.000 Output Total 500 / 2400 Balance -300 / -48.333 1001.667 / -48.333 1295.000 / 1295.000 Physical Exam Narrative: EXAM NARRATIVE: Abdomen: Soft, minimally tender, minimally distended, incision clean dry and intact Urinary Catheter Management^: [place]on: Cath Placed During This Visit: yes, but has since been removed by the nurse Reason for Continuing Indwelling Catheter: Decision to DC Catheter Urinary Catheter Date of Insertion: 01/27/21 Urinary Catheter Time of Insertion: 07:30 Date Urinary Catheter Removed: 01/28/21 Time Urinary Catheter Discontinued: 08:37 Data : 01/30/21 02:40 01/30/21 02:40 A&P Assessment and plan (1) S/P laparoscopic-assisted sigmoidectomy: With postop ileus WBC down to 10.9, afebrile: DC Ancef and Flagyl, start oral Levaquin and Flagyl Full liquid diet Ambulate ad amador. Lovenox SCD for DVT prophylaxis Pepcid for GI prophylaxis Patient will need greater than 2 nights of inpatient stay to ensure resolution of ileus and rule out complications Status: Acute Attestations Medical Necessity Statement*: Status post sigmoid colectomy requiring continued inpatient stay Coding Level of Care Code Acute Erp Business Analyst for Chg Fwd Diagnoses S/P laparoscopic-assisted sigmoidectomy Z90.49
[2021-01-30] MEDS: metroNIDAZOLE 500 MG Tablet PO ×2 (14:25→20:14)
[2021-01-30] MEDS: ondansetron 2 mg/ML SDV 2 mL 4 MG IVP (22:28)
[2021-01-31] VITALS: BP 105/62; PULSE 67; RESP 16; TEMP 36.9; O2SAT 96
[2021-01-31 01:42] VITALS: BP 120/76
[2021-01-31 01:57] VITALS: RESP 16
[2021-01-31] MEDS: morphine 4 mg/mL SDV 1 mL 3 MG IVP (01:57)
[2021-01-31 04:16] VITALS: BP 119/70; PULSE 70; RESP 16; TEMP 36.7; O2SAT 97
[2021-01-31] MEDS: levoFLOXacin 500 mg Tablet PO (05:06)
--- NOTE | 2021-01-31 07:07 | PM.PN ---
Subjective Subjective: Interval history: Patient feeling a lot better, no BMs yet, no nausea or vomiting, tolerating full liquid diet Vitals/I&O/Wt Last Vital Signs Temp 98.1 F 01/31/21 04:16 Pulse 70 01/31/21 04:16 Resp 16 01/31/21 04:16 BP 119/70 01/31/21 04:16 Pulse Ox 97 01/31/21 04:16 01/30/21 01/31/21 01/31/21 22:59 06:59 14:59 Intake Total 720 / 2375.000 360 / 2375.000 Output Total 500 / 1800 1300 / 1800 Balance 220 / 575.000 -940 / 575.000 Physical Exam Narrative: EXAM NARRATIVE: Abdomen: Soft, nontender, nondistended, incisions healing well Urinary Catheter Management^: Paulson: Cath Placed During This Visit: yes, but has since been removed by the nurse Reason for Continuing Indwelling Catheter: Decision to DC Catheter Urinary Catheter Date of Insertion: 01/27/21 Urinary Catheter Time of Insertion: 07:30 Date Urinary Catheter Removed: 01/28/21 Time Urinary Catheter Discontinued: 08:37 Data : 01/30/21 02:40 01/30/21 02:40 A&P Assessment and plan (1) S/P laparoscopic-assisted sigmoidectomy: With postop ileus, resolving DC home today Status: Acute Attestations Medical Necessity Statement*: DC home today Coding Level of Care Code Acute Arts Therapist for Chg Fwd Diagnoses S/P laparoscopic-assisted sigmoidectomy Z90.49
--- NOTE | 2021-01-31 07:09 | P.DS_ITS ---
Discharge Providers Date of Admission: 01/27/21 11:45 Date of Discharge: January 31, 2021 Attending Provider at Admission: Marcus Lomeli MD Attending Provider at Discharge: Marcus Lomeli MD Primary Care Provider: Aida Gutiérrez MD Diagnoses at Discharge Discharge Diagnosis (1) S/P laparoscopic-assisted sigmoidectomy: Status: Acute Reason for Visit Reason for Visit: sigmoidectomy Hospital Course Hospital Course Roselia Leahy is a 60 year old female who had undergone a screening colonoscopy and I could not pass the colonoscope past 20 cm. A subsequent barium enema and CT abdomen pelvis had shown a stricture in the sigmoid colon. Patient continues to have constipation where she has 1 bowel movement a week whereas previously she is to have daily bowel movement Patient underwent elective laparoscopic sigmoid colectomy. By postop day 2, abner rodrigueznt was fully passing flatus. At time of discharge patient is tolerating a full liquid diet, vital signs are stable, incision is clean dry and intact Physical Exam Urinary Catheter Management^: Paulson: Cath Placed During This Visit: yes, but has since been removed by the nurse Reason for Continuing Indwelling Catheter: Decision to DC Catheter Urinary Catheter Date of Insertion: 01/27/21 Urinary Catheter Time of Insertion: 07:30 Date Urinary Catheter Removed: 01/28/21 Time Urinary Catheter Discontinued: 08:37 Discharge Data Data Completed and Pending: Pending at discharge Category Date Time Status ES surgery / GI i mages Routine Exams 01/27/21 06:48 Taken Pathology: Surgic al [PTH] Routine Pth 01/27/21 10:22 Received Vitals: Last Vital Signs Temp 98.1 F 01/31/21 04:16 Pulse 70 01/31/21 04:16 Resp 16 01/31/21 04:16 BP 119/70 01/31/21 04:16 Pulse Ox 97 01/31/21 04:16 Discharge Plan Discharge Patient Disposition: Home Condition: Stable Prescriptions: New hydrocodone-acetaminophen 5-325 mg tablet 1 tab PO Q6H PRN (Reason: pain) Qty: 20 RF: 0 ondansetron HCl [Zofran] 4 mg tablet 4 mg PO Q6H PRN (Reason: nausea and vomiting) Qty: 20 RF: 0 sennosides-docusate sodium [Senna with Docusate Sodium] 8.6-50 mg tablet 1 tab-cap PO BID Qty: 30 RF: 0 metronidazole [Flagyl] 500 mg tablet 500 mg PO Q8H 5 Days Qty: 15 RF: 0 levofloxacin 750 mg tablet 750 mg PO DAILY 5 Days RF: 0 lactulose 10 gram/15 mL solution 15 ml PO BEDTIME Qty: 237 RF: 2 Continued levothyroxine [Synthroid] 88 mcg tablet 88 mcg PO DAILY RF: 0 Discontinued neomycin 500 mg tablet 1 g PO ONCE Qty: 6 RF: 0 erythromycin 500 mg tablet 500 mg PO ONCE Qty: 3 RF: 0 Discharge Orders: Discharge Order (Routine); Ordered 01/31/21 Ordered By: Marcus Lomeli Referrals: Marcus Lomeli MD [Physician] - 2 weeks Patient Instructions: Opioid Safety Activity Restrictions/Additional Instructions: Diet GI soft diet, increase fluid intake as much as possible. Try to have 4-5 small meals a day rather than 3 scheduled meals, limit intake of red meat and salads Activity Avoid strenuous activity for 2 weeks but continue with daily activities including walking as tolerated. Do not lift more than 10 pounds for 2 weeks Return to work/school You can return to work/ school whenever you feel ready as long as you don?t have to lift more than 10 pounds at work. If you have paperwork that needs to be completed for time off from work, please contact my office Driving You can resume driving once you stop using narcotic pain medications, and transition to non-opioid pain medications like Tylenol, Motrin, Aleve, etc. Medications Pain Take opioid pain medications as prescribed and transition to non-opioid pain medications like Tylenol, Motrin, Aleve etc. over the next few days. The goal of the pain medications is to make the pain bearable and not to be pain free since you recently had surgery. Resume all home medications after surgery as per the medication reconciliation list Nausea Nausea is common after surgery, take nausea medications as needed and stay on a liquid bland diet until nausea resolves. Constipation The combination of surgery, anesthesia and pain medications can result in constipation. Take stool softeners as prescribed. If you do not have a bowel movement in 3 days, please take an etyh-cdi-[id number] laxative like MiraLAX to address the constipation. Shower It is ok to shower but avoid getting the wound wet for 48 hours after surgery. Do not soak in bathtub, swimming pool or hot tub for 2 weeks. Wound care If glue has been used on your incisions after surgery, the glue on the incision will peel slowly over the next two weeks. The stitches used are dissolvable and will not need to be removed. Do not apply antibiotics or other medications on the incision Problems with the wound: you can develop some redness around the incision from bruising after surgery. If there is increasing pain, redness, tenderness around the incision with or without drainage, please contact my office to rule out an infection. Sometimes the skin at the incisions can separate, resulting in reopening of the wound. Cover the wound with antibiotic cream and sterile dressings and contact my office. Contact physician Call the office at [phone] during office hours or go the Emergency Room ?Fever to 100.4 or greater ?Shaking chills ?Pain that increases over time ?Redness, warmth, or pus draining from incision sites ?Persistent nausea or inability to take in liquids Discharge Attestations Time Spent in Discharge Care*: less than 30 min Quality Metrics Clinical Quality Measures During this hospital stay, did patient experience: None Coding Level of Care Code Acute Natali DOLORES RICHEY note Diagnoses S/P laparoscopic-assisted sigmoidectomy Z90.49
[2021-01-31 07:26] VITALS: BP 115/73; PULSE 68; RESP 16; TEMP 36.7; O2SAT 98
[2021-01-31] MEDS: metroNIDAZOLE 500 MG Tablet PO (08:09)
[2021-01-31] MEDS: sennosides-docusate Tablet 1 TAB PO (08:09)
[2021-01-31] MEDS: ondansetron 2 mg/ML SDV 2 mL 4 MG IVP ×2 (08:09→11:50)
--- NOTE | 2021-01-31 12:09 | PC.NURSE ---
Discharge Note Patient discharged to home via private vehicle accompanied by . Discharge instructions reviewed with patient and/or manufacturer's representative. Mobile pharmacy medications and/or prescriptions provided. Belongings/home medications returned.
[2021-01-31 12:20] VITALS: BP 115/73; PULSE 68; RESP 16; TEMP 36.7; O2SAT 98
--- NOTE | 2021-02-04 15:26 | PC.SOCIAL ---
discharge follow up call made. spoke with pts . states pt is feeling great. new medications picked up from pharmacy and pt is taking as directed. pt has follow up appointment scheduled with dr. liao for 9-14.
== END 2021-01-31 12:21 | disposition home or self-care (01) | DRG 331 ==
LOC: MEDSURG 01-28 09:23
PROVIDERS: Anesthesiology; Admitting Provider Surgery; PCP Internal Medicine; Visit Provider Surgery
PROC: 0DTN4ZZ Resection of Sigmoid Colon, Percutaneous Endoscopic Approach (ICD-10-PCS; CPT 44204; principal; 2021-01-27 07:00)
PROC: 0DJD8ZZ Inspection of Lower Intestinal Tract, Via Natural or Artificial Opening Endoscopic (ICD-10-PCS; CPT 45378; 2021-01-27 07:00)
DX: K56.699 Other intestinal obstruction unspecified as to partial versus complete obstruction (principal); E03.9 Hypothyroidism, unspecified; Z80.9 Family history of malignant neoplasm, unspecified; Z79.890 Hormone replacement therapy; Z87.59 Personal history of other complications of pregnancy, childbirth and the puerperium; Z80.0 Family history of malignant neoplasm of digestive organs
CPT/HCPCS: 36415; 80048; 82378; 85025; 86850; 86900; 88309; 94664; 96365; 96372; 97116; 97161; C9290; J0330; J0690; J1100; J1650; J2270; J2405; J2704; J3010; J3490; J7030; S0030

== ENCOUNTER 2021-06-04 10:22 | Emergency (ER) | payer MEDICAID, SELFPAY ==
--- NOTE | 2021-06-04 10:25 | ECG_ITS ---
[facility] Test Date: 2021-06-04 Pat Name: Roselia Leahy Department: Room: Gender: Female Inpatient Services Director: : 1960 Requested By: Carolina Hernandez Order Number: [id number] Kelly MD: Tamiko Love M.D. Measurements Intervals [place] Rate: 64 P: 61 NV: 154 QRS: 70 QRSD: 83 T: 58 QT: 386 QTc: 400 Interpretive Statements SINUS RHYTHM WITH SINUS ARRHYTHMIA No previous ECG available for comparison Electronically Signed On 06-05-2021 20:35:38 INSULATION BLANKET MAKER by Tamiko Love M.D. [id number]
--- NOTE | 2021-06-04 10:25 | XR_ITS ---
WS: [id number] Portable AP upright chest, 06/04/2021 Clinical Data: chest pain Comparison: None. Findings: No nodules, masses or effusions are seen. The heart is normal. The pulmonary vascularity is not increased. No pneumonia or pneumothorax is seen. There are calcified granulomas in the right tra cheobronchial region and both denise. Monitor leads are on the chest wall. XR/XR chest 1V portable [id number] Impression: Negative chest.
[2021-06-04 10:29] VITALS: BP 163/69; PULSE 72; RESP 15; TEMP 36.9; O2SAT 100; BMI 23.0
--- NOTE | 2021-06-04 10:41 | ED_ITS ---
HPI - Chest Pain General: Chief Complaint: Chest Pain Stated Complaint: CP Time Seen by Provider: 06/04/21 10:29 History of Present Illness: HPI narrative: 60-year-old presents with chest pain. States this started 4 years ago but over the last 3 weeks she has had more frequent episodes with pain radiating up to her shoulders and bilateral neck. Denies any shortness of breath. Denies fever chills. Denies nausea vomiting. Denies radiation to the back. Does report she has been under a lot of emotional stress lately due to her 's health problems. Denies any suicidal homicidal ideation or any illicit substance use. Review of Systems Narrative: - CONSTITUTIONAL: Denies weight loss, fever and chills. - HEENT: Denies changes in vision and hearing. - RESPIRATORY: Denies SOB and cough. - CV: As above - GI: Denies abdominal pain, nausea, vomiting and diarrhea. - : Denies dysuria and urinary frequency. - MSK: Denies myalgia and joint pain. - SKIN: Denies rash and pruritus. - NEUROLOGICAL: Denies headache, weakness, numbness and syncope. - PSYCHIATRIC: Denies suicidal ideation [facility] [place] [facility] PFSH: Medical History Diverticula of colon Hypothyroidism Surgical History H/O flexible sigmoidoscopy (11/07/20) History of section, classical S/P laparoscopic-assisted sigmoidectomy (01/27/21) Family History Family/Other Cancer Colon Social History Alcohol intake: never Lives independently: Yes Household members: spouse Marital status: Current occupational status: employed History of recent travel: No Current gender identity: Female Physical Exam Narrative: EXAM NARRATIVE: - GENERAL: Alert and oriented x 3. No acute distress. Well-nourished. - EYES: EOMI. Anicteric. - HENT: Atraumatic, no C-spine tenderness. Moist mucous membranes. No scleral icterus. No cervical lymphadenopathy. - LUNGS: Clear to auscultation bilaterally. No accessory muscle use. Equal lung sounds bilaterally. No respiratory distress. - CARDIOVASCULAR: Regular rate and rhythm. No murmur. No JVD. - ABDOMEN: Soft, non-tender and non-distended. Negative CVA tenderness bilaterally, no rebound or guarding, negative Ahumada sign. No palpable masses. - EXTREMITIES: No edema. Non-tender. - SKIN: No rashes or lesions. Warm. - NEUROLOGIC: No meningismus or focal neurological deficits. CN II-XII grossly intact. - PSYCHIATRIC: Cooperative. Appropriate mood and affect. Course Vital Signs: Vital signs: Vital Signs Temperature 98.4 F 06/04/21 10:29 Pulse Rate 72 06/04/21 10:29 Respiratory Rate 15 06/04/21 10:29 Blood Pressure 163/69 06/04/21 10:29 Pulse Oximetry 100 06/04/21 10:29 MDM - Chest Pain MDM Narrative: Medical decision making narrative: 60-year-old presents with chest pain. States however that has been ongoing for the past 4 years but worse over the last 3 weeks. EKG and troponin do not reveal any sign of acute ischemia or other acute abnormality. X-ray does not reveal pneumothorax or consolidation. D-dimer is negative. Lab work otherwise unremarkable. At this time I believe patient would be safe for discharge and outpatient follow-up. Return precautions provided. Plan was reviewed with the patient who expressed understanding. Questions answered. Patient will follow up with PCP. Patient d ischarged in stable condition. Lab Data: Labs: Lab Results 06/04/21 06/04/21 06/04/21 11:24 11:24 11:24 WBC 4.3 10^3/uL 10^3/ uL (4.0-10.0) RBC 4.15 10^6/uL 10^6 /uL (4.1-5.3) Hgb 12.5 g/dL g/dL (11.5-15.3) Hct 38.9 % % (37.0-47.0) MCV 93.7 fl fl (81-99) MCH 30.1 pg pg (28.0-34.0) MCHC 32.1 g/dL g/dL (30.0-36.0) RDW 12.6 % % (12.1-15.1) Plt Count 250 10^3/cmm 10^3 /cmm (130-400) MPV 9.2 fL fL (7.4-10.4) Neut % (Auto) 51.3 % % Lymph % (Auto) 37.1 % % [place] % (Auto) 8.6 % % Eos % (Auto) 2.3 % % Baso % (Auto) 0.5 % % Neut # (Auto) 2.21 10^3/uL 10^3 /uL (1.8-7.7) Lymph # (Auto) 1.6 10^3/uL 10^3/ uL (0.8-4.8) [place] # (Auto) 0.4 10^3/uL 10^3/ uL (0.2-0.9) Eos # (Auto) 0.1 10^3/uL 10^3/ uL (0.0-0.8) Baso # (Auto) 0.0 10^3/uL 10^3/ uL (0.0-0.1) Nucleated RBC % (a uto) 0 % % Nucleated RBCs # 0.0 /100WBC /100W BC PT INR APTT D-Dimer Sodium 138 mmol/L mmol/L (136-145) Potassium 3.9 mmol/L mmol/L (3.5-5.1) Chloride 100 mmol/L mmol/L (98-107) Carbon Dioxide 27 mmol/L mmol/L (22-29) Anion Gap 14.9 (5-19) BUN 13 mg/dL mg/dL (6-20) Creatinine 0.7 mg/dL mg/dL (0.5-0.9) GFR Calculation 85.6 mL/min L mL/ min (90-130) Glucose 85 mg/dL mg/dL (65-115) Calculated Osmolal ity 285 mOsm/kg mOsm/ kg (285-295) Calcium 9.3 mg/dL mg/dL (8.5-10.5) Total Bilirubin 0.5 mg/dL mg/dL (0.15-1.2) AST 19 U/L U/L (0-32) ALT 14 U/L U/L (0-33) Alkaline Phosphata se 55 IU/L IU/L (35-105) Troponin T Baselin e 6 ng/L ng/L (0-10) NT-Pro-B Natriuret Pep 88 pg/mL pg/mL (0-125) Total Protein 7.2 g/dL g/dL (6.6-8.7) Albumin 4.4 g/dL g/dL (3.5-5.2) Globulin 2.8 g/dL g/dL (1.3-4.6) Lipase 25 U/L U/L (13-60) 06/04/21 11:27 WBC RBC Hgb Hct MCV MCH MCHC RDW Plt Count MPV Neut % (Auto) Lymph % (Auto) [place] % (Auto) Eos % (Auto) Baso % (Auto) Neut # (Auto) Lymph # (Auto) [place] # (Auto) Eos # (Auto) Baso # (Auto) Nucleated RBC % (a uto) Nucleated RBCs # PT 13.50 SECONDS SEC ONDS (12.1-14.9) INR 1.00 (0.8-1.2) APTT 28.4 SECONDS SECO NDS (23.9-36.7) D-Dimer 0.31 ug/mIFEU ug/ mIFEU (0-0.59) Sodium Potassium Chloride Carbon Dioxide Anion Gap BUN Creatinine GFR Calculation Glucose Calculated Osmolal ity Calcium Total Bilirubin AST ALT Alkaline Phosphata se Troponin T Baselin e NT-Pro-B Natriuret Pep Total Protein Albumin Globulin Lipase EKG Data^: EKG 1: Other EKG comments: Sinus rhythm with sinus arrhythmia, rate of 64, T wave inversion in V2, otherwise no sign of acute ischemia or other acute abnormality. Discharge Plan Discharge Patient Disposition: Home Clinical Impression: Chest pain Condition: Stable Prescriptions: No Action levothyroxine [Synthroid] 88 mcg tablet 88 mcg PO DAILY RF: 0 Senna with Docusate Sodium 8.6-50 mg tablet 1 tab-cap PO BID Qty: 30 RF: 0 Discharge Orders: Discharge ED (Routine); Ordered 06/04/21 Ordered By: Andrzej Sanders Referrals: Aida Gutiérrez MD [Primary Care Provider] - 1-3 days Patient Instructions: Chest Pain (ED), Opioid Safety Coding Level of Care Code ED Financial Reporting Consultant for Brooke Sutherland
[2021-06-04 11:28] LABS: Basophils % 0.5 %; Eosinophils # 0.1 10^3/uL (0.0-0.8); Eosinophils % 2.3 %; Hematocrit 38.9 % (37.0-47.0); Hemoglobin 12.5 g/dL (11.5-15.3); Lymphocytes # 1.6 10^3/uL (0.8-4.8); Lymphocytes % 37.1 %; Mean Corpuscular HGB Conc 32.1 g/dL (30.0-36.0); Mean Corpuscular Hemoglobin 30.1 pg (28.0-34.0); Mean Corpuscular Volume 93.7 fl (81-99); Mean Platelet Volume 9.2 fL (7.4-10.4); Monocytes # 0.4 10^3/uL (0.2-0.9); Monocytes % 8.6 %; Neutrophils # 2.21 10^3/uL (1.8-7.7); Neutrophils % 51.3 %; Nucleated Red Blood Cells % 0 %; Platelet Count 250 10^3/cmm (130-400); Red Blood Count 4.15 10^6/uL (4.1-5.3); Red Cell Distribution Width 12.6 % (12.1-15.1); White Blood Count 4.3 10^3/uL (4.0-10.0)
[2021-06-04 11:56] LABS: Partial Thromboplastin Time 28.4 SECONDS (23.9-36.7)
[2021-06-04 11:58] LABS: D Dimer 0.31 ug/mIFEU (0-0.59)
[2021-06-04 12:10] LABS: Alanine Aminotransferase 14 U/L (0-33); Albumin Level 4.4 g/dL (3.5-5.2); Alkaline Phosphatase 55 IU/L (35-105); Anion Gap 14.9 (5-19); Aspartate Amino Transferase 19 U/L (0-32); Blood Urea Nitrogen 13 mg/dL (6-20); Calcium 9.3 mg/dL (8.5-10.5); Carbon Dioxide 27 mmol/L (22-29); Chloride 100 mmol/L (98-107); Globulin 2.8 g/dL (1.3-4.6); Glomerular Filtration Rate 85.6 mL/min (90-130); Glucose 85 mg/dL (65-115); Lipase 25 U/L (13-60); NT Pro B Type Natriuretic Pept 88 pg/mL (0-125); Osmolality Calculated 285 mOsm/kg (285-295); Potassium 3.9 mmol/L (3.5-5.1); Sodium 138 mmol/L (136-145); Total Bilirubin 0.5 mg/dL (0.15-1.2); Total Protein 7.2 g/dL (6.6-8.7)
--- NOTE | 2021-06-04 12:25 | ECG_ITS ---
[facility] Test Date: 2021-06-04 Pat Name: Roselia Leahy Department: Room: Gender: Female Manager Services: : 1960 Requested By: Carolina Hernandez Order Number: [id number] Kelly MD: Tamiko Love M.D. Measurements Intervals [place] Rate: 57 P: 66 DE: 172 QRS: 69 QRSD: 82 T: 47 QT: 407 QTc: 399 Interpretive Statements SINUS BRADYCARDIA WITH SINUS ARRHYTHMIA MODERATE VOLTAGE CRITERIA FOR LVH, CONSIDER NORMAL VARIANT [MEETS CRITERIA IN ONE OF: R(aVL), S(V1), R(V5), R(V5/V6)+S(V1)] Compared to ECG 06/04/2021 10:38:20 Sinus rhythm no longer present Electronically Signed On 06-05-2021 22:02:47 FRAMING SPECIALIST by Tamiko Love M.D. [id number]
[2021-06-04 12:37] LABS: Troponin(5th) Baseline 6 ng/L (0-10)
[2021-06-04 13:10] VITALS: PULSE 70; RESP 14; O2SAT 99
== END 2021-06-04 13:24 | disposition home or self-care (01) ==
PROVIDERS: Physician Assistant; Emergency Provider Emergency Medicine; PCP Internal Medicine
DX: R07.9 Chest pain, unspecified (principal); E03.9 Hypothyroidism, unspecified; M25.511 Pain in right shoulder; M25.512 Pain in left shoulder; M54.2 Cervicalgia
CPT/HCPCS: 71045; 80053; 83690; 83880; 84484; 85025; 85378; 85610; 85730; 93005; 99283

== ENCOUNTER 2022-09-15 13:20 | Outpatient (CLI) | payer BC, MEDICAID, SELFPAY ==
--- NOTE | 2022-09-15 13:36 | XR_ITS ---
WS: [id number] DEXA (DUAL ENERGY X-RAY ABSORPTIOMETRY) Bone mineral density was performed using a [employer] machine. HISTORY: ASYMPTOMATIC POSTMENOPAUSAL STATUS COMPARISON: None available. Lumbar spine BMD (L1-L4): 0.925 g/cm2 T score: -2.1 Z score: -0.7 Total hip BMD: Left: 0.796 g/cm2. T score: -1.7 Z score: -0.6 Right: 0.866 g/cm2. T score: -1.1 Z score: 0.0 10 year probability of a major osteoporotic fracture is 9.9%. XR/XR DEXA axial skeleton* [id number] IMPRESSION: OSTEOPENIA based upon the WHO classification for females.
--- NOTE | 2022-09-15 13:41 | MM_ITS ---
WS: [id number] BILATERAL SCREENING DIGITAL TOMOSYNTHESIS MAMMOGRAM WITH CAD HISTORY: SCREENING COMPARISON: 09/20/2017 Bilateral CC and MLO views with tomosynthesis and synthetic mammography submitted. Computer aided det ection analyzed. Breast composition: There are scattered areas of fibroglandular density. No suspicious masses, microc alcifications or architectural distortion. Stable bilateral breast nodules. MM/[place] [id number] IMPRESSION: BI-RADS: 2-Benign FOLLOW UP: 1 Year Follow-up
== END 2022-09-15 13:21 | disposition home or self-care (01) ==
PROVIDERS: PCP Internal Medicine; Visit Provider Internal Medicine
DX: Z12.31 Encounter for screening mammogram for malignant neoplasm of breast (principal); Z78.0 Asymptomatic menopausal state; M85.80 Other specified disorders of bone density and structure, unspecified site
CPT/HCPCS: 77063; 77067; 77080

== ENCOUNTER 2023-07-08 13:54 | Outpatient (CLI) | payer BC, MEDICAID, SELFPAY ==
--- NOTE | 2023-07-08 13:58 | XR_ITS ---
WS: [email or web address] XR hip RT 2-3V wo/w pel* [id number] REASON FOR EXAM: FALL/LUMBAGO W/R SIDE SCIATICA FINDINGS: No fracture. Moderate narrowing of the joint space with mild subchondral sclerosis and mild osteophytosis of the a cetabulum. No soft tissue abnormality. IMPRESSION: No acute abnormality. Moderate osteoarthritis of the right hip.
--- NOTE | 2023-07-08 13:58 | XR_ITS ---
WS: [email or web address] XR lumbar spine min 4V [id number] REASON FOR EXAM: FALL/LUMBAGO W/SCIATICA,R SIDE FINDINGS: There are 4 lumbar vertebrae without ribs. First lumbar vertebrae has small hypoplastic ribs. There is a mild rotatory dextroscoliosis. Normal lordosis of the lumbar spine. Mild compression deformities of the first and second lumbar vertebrae. Mild narrowing of the L4-L5 and L5-S1 disc space. 2 to 3 mm of anterolisthesis of L4 and L5. No spondylolysis. Moderate degenerative changes in the facet joints L4-S1. IMPRESSION: Mild compression deformities of the L1 and L2 vertebrae of unknown chronicity. The lumbar spine on a CT scan of the abdomen and pelvis 11/28/2020 demonstrated no significant biconcav e compression deformities. Mild degenerative spondylosis.
== END 2023-07-08 13:55 | disposition home or self-care (01) ==
LOC: RAD 13:55
PROVIDERS: PCP Internal Medicine; Visit Provider Nurse Practitioner Family
DX: M54.41 Lumbago with sciatica, right side (principal); W19.XXXA Unspecified fall, initial encounter; M43.8X6 Other specified deforming dorsopathies, lumbar region; M47.816 Spondylosis without myelopathy or radiculopathy, lumbar region; M16.11 Unilateral primary osteoarthritis, right hip
CPT/HCPCS: 72110; 73502

== ENCOUNTER → 2023-11-16 09:04 | Outpatient (CLI) | payer BC, MEDICAID, SELFPAY ==
--- NOTE | 2023-11-16 09:15 | MM_ITS ---
WS: [email or web address] BILATERAL 3D TOMOSYNTHESIS DIGITAL SCREENING MAMMOGRAPHY WITH CAD CLINICAL INFORMATION: SCREENING HISTORY: Screening mammogram. No current complaints. COMPARISON: 2022 TECHNIQUE: Bilateral CC and MLO views. FINDINGS: Scattered fibroglandular densities bilaterally. No suspicious focal mass, asymmetry, calcifications, or architectural distortion. No evidence of malignancy. Few incidental punctate and lucent centered c alcifications. Small nodular densities bilaterally are stable. Vascular calcification. MM/[place] [id number] IMPRESSION: BI-RADS: 2-Benign FOLLOW UP: 1 Year Follow-up Recommend return to annual screening mammography.
== END | disposition home or self-care (01) ==
LOC: RAD 09:04
PROVIDERS: PCP Internal Medicine; Visit Provider Internal Medicine
DX: Z12.31 Encounter for screening mammogram for malignant neoplasm of breast (principal)
CPT/HCPCS: 77063; 77067

== ENCOUNTER 2024-10-26 15:52 | Outpatient (CLI) | payer BC, MEDICAID, SELFPAY ==
--- NOTE | 2024-10-26 16:01 | XR_ITS ---
WS: [id number] Left shoulder, 3 views, 10/26/2024 Clinical Data: PAIN IN LEFT SHOULDER Comparison: None. Findings: No fractures or dislocations are seen. The glenohumeral joint shows irregularity of the glenoid and the greater tuberosity with narrowing. The AC joint is normal. The adjacent left clavicle, left scapula and ribs are normal. The soft tissues are unremarkable. XR/XR shoulder LT min 2V* [id number] Impression: Mild osteoarthritis of the left shoulder.
== END 2024-10-26 15:53 | disposition home or self-care (01) ==
PROVIDERS: PCP Internal Medicine; Visit Provider Nurse Practitioner Family
DX: M19.012 Primary osteoarthritis, left shoulder (principal)
CPT/HCPCS: 73030

== ENCOUNTER 2024-12-23 19:24 | Emergency (ER) | payer BC, MEDICAID, SELFPAY ==
[2024-12-23 19:27] VITALS: BP 107/64; PULSE 108; RESP 18; TEMP 37.8; O2SAT 98; BMI 26.1
--- NOTE | 2024-12-23 21:00 | XRR_ITS ---
PROCEDURE INFORMATION: Exam: XR Chest Exam date and time: 12/23/2024 9:10 PM Age: 64 years old Clinical indication: Cough and fever; Cough with fever; Additional info: Fever, cough TECHNIQUE: Imaging protocol: Radiologic exam of the chest. Views: 2 views. COMPARISON: CR XR chest 1V portable [id number] 06/04/2021 10:51 AM FINDINGS: Lungs: Unremarkable. No consolidation. Pleural spaces: Unremarkable. No pleural effusion. No pneumothorax. Heart/Mediastinum: Unremarkable. No cardiomegaly. Bones/joints: Unremarkable. XR/XR chest 2V* [id number] IMPRESSION: No acute findings.
--- NOTE | 2024-12-23 21:28 | W.ED.SKABFB ---
Documented by User: LIA Jacques 12/24/24 00:24 HPI - Skin/Abscess/Foreign Bdy General: Chief complaint: Skin/Abscess/Foreign Body Stated complaint: rash all over/fever Time Seen by Provider: 12/23/24 20:22 Source: patient Mode of arrival: ambulatory Limitations: no limitations History of Present Illness: Patient is a 64-year-old female that presents to the emergency department with an itchy rash on her head, trunk and extremities. The patient reports she has also had a fever over this. She reports she recently was taking amoxicillin for dental infection but has not had any allergies to amoxicillin in the past. She states yesterday she was feeling very fatigued and the rash began this morning. She did take some Benadryl for it this morning which did not seem to help very much. She denies any tick bites. She does have the rash on the palms of her hands as well but she states that does not itch. The rash is of various sizes and irregular. She reports she has had a mild cough that began today as well. She denies any shortness of breath. She presents to the emergency department for further evaluation and treatment. Associated symptoms: Reports fever(s); Deny nausea or vomiting Related Data Home Medications ?Medication ?Instructions ?Recorded ?Confirmed levothyroxine 88 mcg tablet 88 mcg PO DAILY 07/03/19 03/14/21 (Synthroid) Previous Rx's ?Medication ?Instructions ?Recorded sennosides 8.6 mg-docusate sodium 1 tab-cap PO BID constipation #30 01/31/21 50 mg tablet (Senna with Docusate tabs Sodium) prednisone 20 mg tablet 40 mg (2 x 20 mg) PO DAILY 5 days 12/24/24 #10 tabs Allergies Allergy/AdvReac Type Severity Reaction Status Date / Time No Known Allergies Allergy Verified 03/14/21 14:12 Review of Systems General: Reports: 10 or more systems reviewed and unremarkable except in HPI and below Const: Reports: fever(s), body aches and other (Fatigue) Eyes: Denies: eye discharge or eye redness ENMT: Denies: throat pain, odynophagia, mouth pain or swelling of lips/tongue Card: Denies: chest pain Resp: Reports: non-productive cough; Denies: dyspnea, productive cough, wheezing or stridor GI: Denies: abdominal pain, nausea or vomiting : Denies: flank pain, difficulty voiding or dysuria Musc: Denies: neck pain, back pain, extremity pain or joint pain Skin/Breast: Reports: rash (Maculopapular rash that is itchy) Neuro: Denies: headache(s), numbness in extremities or weakness in extremities Psych: Denies: anxiety Endo: Denies: polyuria or polydipsia Tim/Lymph: Denies: petechiae All/Imm: Denies: urticaria, throat swelling, tongue swelling, facial swelling or acute wheezing PFSH ED PFSH: Medical History Hypothyroidism Diverticula of colon Surgical History S/P laparoscopic-assisted sigmoidectomy (01/27/21) H/O flexible sigmoidoscopy (11/07/20) History of section, classical Family History Family/Other Cancer Colon Social History (Updated 12/23/24 @ 22:37 by LIA Jacques) Smoking and tobacco/nicotine status: never used tobacco/nicotine Alcohol intake: never Substance/Drug Use: never Lives independently: Yes Household members: spouse Marital status: Current occupational status: employed Do you think of yourself as: Straight/Heterosexual Current gender identity: Female Physical Exam Const: COMMON NORMALS: no acute distress, no limitations and alert GENERAL APPEARANCE: cooperative ORIENTATION/CONSCIOUSNESS: Yes awake HENMT: COMMON NORMALS: normocephalic, atraumatic, external ears normal, EAC's normal, TM's normal bilaterally and Normal external nose present HEAD & SCALP: normocephalic and atraumatic FACE & SINUS: normal facial exam NOSE: Normal external nose present EXTERNAL EAR: Yes external ears normal EXTERNAL AUDITORY CANAL: EAC's normal TYMPANIC MEMBRANE: TM's normal bilaterally MOUTH: Normal oral and palatal mucosa present Eye: COMMON NORMALS: Equal, round and reactive pupils present, EOMs intact bilaterally and conjunctivae normal CONJUNCTIVA: Yes conjunctivae normal PUPIL: Yes Equal, round and reactive pupils present Neck/C-Spine: COMMON NORMALS: full ROM and no meningeal signs GENERAL: Yes normal visual inspection Resp: COMMON NORMALS: normal respiratory effort, No retractions and clear to auscultation bilaterally AUSCULTATION: clear to auscultation bilaterally, no crackles, no rales, no rhonchi and no wheezes Cardio: COMMON NORMALS: regular rhythm RATE: tachycardic RHYTHM: regular rhythm GI: COMMON NORMALS: Soft to palpation and non-tender PALPATION: Yes Soft to palpation : COMMON NORMALS: Yes no CVA tenderness BLADDER/KIDNEY EXAM: Yes no CVA tenderness Back/Pelvis: COMMON NORMALS: no CVA tenderness and no thoracic nor lumbar tenderness Extremity: COMMON NORMALS: normal to inspection, full ROM, no calf tenderness and no pedal edema Neuro: SENSORIUM/ORIENTATION: Yes alert MENINGEAL SIGNS: Yes no meningeal signs SPEECH: speech normal Psych: COMMON NORMALS: mental status grossly normal and cooperative ATTITUDE: Yes calm Skin: NARRATIVE SKIN EXAM: Patient does have maculopapular rash that is widespread on the head, neck, trunk and all extremities. This rash blanches under pressure. The rash is spreading of sizes. The patient reports that is very itchy. The patient also has a rash on the palms that she states is not itchy. RASHES: rashes noted Course ED course: Discussed case with Dr. Duran who personally examined the patient. He recommended getting a CBC, CMP, CRP, urine, chest x-ray and respiratory panel. I reviewed all the lab findings with Dr. Duran who felt the patient can be discharged on prednisone and close follow-up with the primary care provider next week for recheck. Reevaluation(s): Reevaluation #1: Patient states she is feeling better after the medications and the itchiness of the rash has improved. Time: 00:14 Vital Signs: Vital signs: Vital Signs Temperature 100.0 F H 12/23/24 19:27 Pulse Rate 89 12/24/24 00:26 Respiratory Rate 16 12/23/24 23:31 Blood Pressure 111/75 12/24/24 00:26 Pulse Oximetry 97 12/24/24 00:26 Oxygen Delivery Me thod Room Air 12/23/24 23:31 MDM - Skin/Abscess/Foreign Bdy Medicial Decision Making Patient was advised of the exam, lab and imaging findings. Thankfully she did not have any sign of pneumonia on the chest x-ray. She does not have an elevated white blood cell count. She does not have any pattern that would appear consistent with a tickborne illness and she denies any known tick bites. Patient does have the rash on the palms of her hands, however, the risk of syphilis would be rare since the patient has not had any known exposure and has been taking amoxicillin for the past 10 days which is one of the treatments for syphilis. This is probably a drug reaction to the amoxicillin although there could be some other exposure that is caused this as well. The fever may be from a virus as there are no obvious bacterial sources noted. The patient was advised to use [id number] Tylenol or ibuprofen for the fever and follow-up with the primary care provider next week for recheck. I also advised that she return to the emergency department with any worsening symptoms. The patient expressed understanding. Differential Diagnosis Likely viral exanthem, urticaria, allergic reaction to drug and contact dermatitis Medical Records I reviewed the patient's medical records. Lab Data I reviewed the patient's lab results. 12/23/24 21:12/23/24 21: Radiology Impressions Chest X-Ray 12/23/24 21: IMPRESSION: No acute findings. Laboratory Results WBC 8.49 10^3/uL (3.29-11.43) 12/23/24: RBC 4.57 10^6/uL (3.85-5.65) 12/23/24 21: Hgb 13.40 g/dL (11.27-16.99) 12/23/24: Hct 41.7 % (36-47) 12/23/24 21: MCV 91.2 fl (85-98) 12/23/24 21: MCH 29.3 pg (27-33) 12/23/24 21: MCHC 32.1 g/dL (30-55) 12/23/24: RDW 13.3 % (12.1-15.1) 12/23/24: Plt Count 244 10^3/cmm (157-399) 12/23/24: MPV 9.4 fL (7.4-10.4) 12/23/24: Neut % (Auto) 87.1 % 12/23/24: Lymph % (Auto) 7.9 % 12/23/24 21: [place] % (Auto) 3.4 % 12/23/24 21: Eos % (Auto) 1.3 % 12/23/24: Baso % (Auto) 0.1 % 12/23/24 21: Neut # (Auto) 7.39 10^3/uL (1.8-7.7) 12/23/24: Lymph # (Auto) 0.7 10^3/uL (0.8-4.8) L 12/23/24 21: [place] # (Auto) 0.3 10^3/uL (0.2-0.9) 12/23/24: Eos # (Auto) 0.1 10^3/uL (0.0-0.8) 12/23/24: Baso # (Auto) 0.0 10^3/uL (0.0-0.1) 12/23/24: Nucleated RBC % (auto) 0 % 12/23/24: Nucleated RBCs # 0.0 /100WBC 12/23/24 21: Sodium 135 mmol/L (136-145) L 12/23/24: Potassium 4.1 mmol/L (3.5-5.1) 12/23/24: Chloride 98 mmol/L (98-107) 12/23/24: Carbon Dioxide 22 mmol/L (22-29) 12/23/24: Anion Gap 19.1 (5-19) H 12/23/24 21: BUN 16 mg/dL (8-23) 12/23/24 21: Creatinine 0.8 mg/dL (0.5-0.9) 12/23/24: GFR Calculation 72.4 mL/min (90-130) L 12/23/24: Glucose 114 mg/dL (65-115) 12/23/24: Calculated Osmolality 282 mOsm/kg (285-295) L 12/23/24: Calcium 9.5 mg/dL (8.5-10.5) 12/23/24: Total Bilirubin 0.6 mg/dL (0.15-1.2) 12/23/24: AST 19 U/L (0-32) 12/23/24 21: ALT 14 U/L (0-33) 12/23/24 21:26 Alkaline Phosphatase 90 U/L (35-105) 12/23/24 21:26 C-Reactive Protein 22.9 mg/L (0.0-4.9) H 12/23/24 21: Total Protein 7.9 g/dL (6.6-8.7) 12/23/24 21: Albumin 4.2 g/dL (3.5-5.2) 12/23/24 21: Globulin 3.7 g/dL (1.3-4.6) 12/23/24 21: Urine Color Yellow (Yellow) 12/23/24 21: Urine Appearance Clear (CLEAR) 12/23/24 21: Urine pH 5.5 (5-7) 12/23/24 21:18 Ur Specific [place] 1.027 (1.005-1.030) 12/23/24 21:18 Urine Protein Trace (Negative) A 12/23/24 21:18 Urine Glucose (UA) Negative (Normal) 12/23/24 21:18 Urine Ketones 2+ (Negative) H 12/23/24 21:18 Urine Blood 2+ (Negative) A 12/23/24 21:18 Urine Nitrate Negative (Negative) 12/23/24 21:18 Urine Bilirubin Negative (Negative) 12/23/24 21:18 Urine Urobilinogen 1.0 mg/dL (Negative) 12/23/24 21:18 Ur Leukocyte Esterase Trace (Negative) A 12/23/24 21:18 Urine RBC 6-10 /hpf (0-2) 12/23/24 21:18 Urine WBC 0-5 /hpf (0-5) 12/23/24 21:18 Ur Squamous Epith Cells 0-5 /hpf (0-5) 12/23/24 21:18 Amorphous Sediment Not Reportable 12/23/24 21:15 Urine Bacteria None seen /hpf (NONE) 12/23/24 21:18 Hyaline Casts 2.46 /lpf 12/23/24 21:18 Adenovirus (PCR) Not detected (NOT DETECT) 12/23/24 21:46 C. pneumoniae DNA (PCR) Not detected (NOT DETECT) 12/23/24 21:46 Coronavirus 229E (PCR) Not detected (NOT DETECT) 12/23/24 21:46 Human Metapneumovir PCR Not detected (NOT DETECT) 12/23/24 21:46 Influenza A (H1) PCR Not detected (NOT DETECT) 12/23/24 21:46 Influ A (H1/09) PCR Not detected (NOT DETECT) 12/23/24 21:46 Influenza A (H3) PCR Not detected (NOT DETECT) 12/23/24 21:46 Influenza Type A (PCR) Not detected (NOT DETECT) 12/23/24 21:46 Influenza Type B (PCR) Not detected (NOT DETECT) 12/23/24 21:46 M. pneumoniae (PCR) Not detected (NOT DETECT) 12/23/24 21:46 Parainfluenza 1 (PCR) Not detected (NOT DETECT) 12/23/24 21:46 Parainfluenza 2 (PCR) Not detected (NOT DETECT) 12/23/24 21:46 Parainfluenza 3 (PCR) Not detected (NOT DETECT) 12/23/24 21:46 Parainfluenza 4 (PCR) Not detected (NOT DETECT) 12/23/24 21:46 RSV Type A (PCR) Not detected (NOT DETECT) 12/23/24 21:46 RSV Type B (PCR) Not detected (NOT DETECT) 12/23/24 21:46 Entero/Rhino (PCR) Not detected (NOT DETECT) 12/23/24 21:46 SARS-CoV-2 (PCR) Not detected (NOT DETECT) 12/23/24 21:46 All radiology interpretation(s) finalized by discharge Critical Care Time Critical Care Time: Critical Care Time: No Discharge Plan Discharge Patient Disposition: Home Clinical Impression: Pruritic rash, Acute dehydration Adverse drug reaction Qualifiers: Encounter type: initial encounter Qualified Code(s): T50.905A - Adverse effect of unspecified drugs, medicaments and biological substances, initial encounter Fever Qualifiers: Fever type: unspecified Qualified Code(s): R50.9 - Fever, unspecified Condition: Stable Prescriptions: New prednisone 20 mg tablet 40 mg PO DAILY 5 Days Qty: 10 0RF No Action levothyroxine [Synthroid] 88 mcg tablet 88 mcg PO DAILY Senna with Docusate Sodium 8.6-50 mg tablet 1 tab-cap PO BID Qty: 30 0RF Discharge Orders: Discharge ED (Routine); Ordered 12/24/24 Ordered By: Andrew Renee Referrals: Aida Gutiérrez MD [Primary Care Provider, Internal Medicine] Discharge Diet: Usual diet Discharge Activity: Resume usual activity Patient Instructions: Dehydration (ED), Acute Rash (ED), Adverse Drug Reaction (ED), Opioid Safety, Pain Management, Patient Portal & Josue Instructions Activity Restrictions/Additional Instructions: Take the steroids as directed. Your prescription was sent electronically to the [facility] pharmacy in [place]. [id number] Benadryl, Zyrtec or Claritin as directed for itching. [id number] Tylenol or ibuprofen as directed for fever. Follow-up with your doctor early next week for recheck. Cool compresses or cool oatmeal baths as needed for the itching. Try and avoid hot showers or hot baths as this can make the itching worse. Return to the emergency department with any worsening symptoms. Print Language: Bulgarian Coding Level of Care Code ED [employer] Manager [employer] Fwd Documented by User: You Duran, 12/24/24 18:02 HPI - Skin/Abscess/Foreign Bdy General: Chief complaint: Skin/Abscess/Foreign Body Stated complaint: rash all over/fever Time Seen by Provider: 12/23/24 20:22 Related Data Home Medications ?Medication ?Instructions ?Recorded ?Confirmed levothyroxine 88 mcg tablet 88 mcg PO DAILY 07/03/19 03/14/21 (Synthroid) Previous Rx's ?Medication ?Instructions ?Recorded sennosides 8.6 mg-docusate sodium 1 tab-cap PO BID constipation #30 01/31/21 50 mg tablet (Senna with Docusate tabs Sodium) prednisone 20 mg tablet 40 mg (2 x 20 mg) PO DAILY 5 days 12/24/24 #10 tabs Allergies Allergy/AdvReac Type Severity Reaction Status Date / Time No Known Allergies Allergy Verified 03/14/21 14:12 [facility]LY [facility] ED PFS: Medical History Hypothyroidism Diverticula of colon Surgical History S/P laparoscopic-assisted sigmoidectomy (01/27/21) H/O flexible sigmoidoscopy (11/07/20) History of section, classical Family History Family/Other Cancer Colon Social History (Updated 12/23/24 @ 22:37 by LIA Jacques) Smoking and tobacco/nicotine status: never used tobacco/nicotine Alcohol intake: never Substance/Drug Use: never Lives independently: Yes Household members: spouse Marital status: Current occupational status: employed Do you think of yourself as: Straight/Heterosexual Current gender identity: Female Course Vital Signs: Vital signs: Vital Signs Temperature 100.0 F H 12/23/24 19:27 Pulse Rate 89 12/24/24 00:26 Respiratory Rate 16 12/23/24 23:31 Blood Pressure 111/75 12/24/24 00:26 Pulse Oximetry 97 12/24/24 00:26 Oxygen Delivery Me thod Room Air 12/23/24 23:31 MDM - Skin/Abscess/Foreign Bdy Medicial Decision Making Patient was advised of the exam, lab and imaging findings. Thankfully she did not have any sign of pneumonia on the chest x-ray. She does not have an elevated white blood cell count. She does not have any pattern that would appear consistent with a tickborne illness and she denies any known tick bites. Patient does have the rash on the palms of her hands, however, the risk of syphilis would be rare since the patient has not had any known exposure and has been taking amoxicillin for the past 10 days which is one of the treatments for syphilis. This is probably a drug reaction to the amoxicillin although there could be some other exposure that is caused this as well. The fever may be from a virus as there are no obvious bacterial sources noted. The patient was advised to use [id number] Tylenol or ibuprofen for the fever and follow-up with the primary care provider next week for recheck. I also advised that she return to the emergency department with any worsening symptoms. The patient expressed understanding. This patient was originally seen by Mr. Thelma PA-C. I agree with his history, evaluation, and treatment. Lab Data 12/23/24 21:12/23/24 21: Radiology Impressions Chest X-Ray 12/23/24 21:00 IMPRESSION: No acute findings. Laboratory Results WBC 8.49 10^3/uL (3.29-11.43) 12/23/24 21: RBC 4.57 10^6/uL (3.85-5.65) 12/23/24 21: Hgb 13.40 g/dL (11.27-16.99) 12/23/24: Hct 41.7 % (36-47) 12/23/24 21: MCV 91.2 fl (85-98) 12/23/24: MCH 29.3 pg (27-33) 12/23/24 21: MCHC 32.1 g/dL (30-55) 12/23/24: RDW 13.3 % (12.1-15.1) 12/23/24 21: Plt Count 244 10^3/cmm (157-399) 12/23/24: MPV 9.4 fL (7.4-10.4) 12/23/24: Neut % (Auto) 87.1 % 12/23/24: Lymph % (Auto) 7.9 % 12/23/24: [place] % (Auto) 3.4 % 12/23/24: Eos % (Auto) 1.3 % 12/23/24: Baso % (Auto) 0.1 % 12/23/24: Neut # (Auto) 7.39 10^3/uL (1.8-7.7) 12/23/24: Lymph # (Auto) 0.7 10^3/uL (0.8-4.8) L 12/23/24: [place] # (Auto) 0.3 10^3/uL (0.2-0.9) 12/23/24 21: Eos # (Auto) 0.1 10^3/uL (0.0-0.8) 12/23/24 21: Baso # (Auto) 0.0 10^3/uL (0.0-0.1) 12/23/24 21: Nucleated RBC % (auto) 0 % 12/23/24 21: Nucleated RBCs # 0.0 /100WBC 12/23/24 21:26 Sodium 135 mmol/L (136-145) L 12/23/24 21: Potassium 4.1 mmol/L (3.5-5.1) 12/23/24 21: Chloride 98 mmol/L (98-107) 12/23/24 21: Carbon Dioxide 22 mmol/L (22-29) 12/23/24 21: Anion Gap 19.1 (5-19) H 12/23/24 21: BUN 16 mg/dL (8-23) 12/23/24 21: Creatinine 0.8 mg/dL (0.5-0.9) 12/23/24 21: GFR Calculation 72.4 mL/min (90-130) L 12/23/24 21: Glucose 114 mg/dL (65-115) 12/23/24 21: Calculated Osmolality 282 mOsm/kg (285-295) L 12/23/24 21: Calcium 9.5 mg/dL (8.5-10.5) 12/23/24: Total Bilirubin 0.6 mg/dL (0.15-1.2) 12/23/24 21: AST 19 U/L (0-32) 12/23/24 21: ALT 14 U/L (0-33) 12/23/24 21: Alkaline Phosphatase 90 U/L (35-105) 12/23/24 21: C-Reactive Protein 22.9 mg/L (0.0-4.9) H 12/23/24 21: Total Protein 7.9 g/dL (6.6-8.7) 12/23/24: Albumin 4.2 g/dL (3.5-5.2) 12/23/24 21: Globulin 3.7 g/dL (1.3-4.6) 12/23/24 21: Urine Color Yellow (Yellow) 12/23/24 21:18 Urine Appearance Clear (CLEAR) 12/23/24 21:18 Urine pH 5.5 (5-7) 12/23/24 21:18 Ur Specific [place] 1.027 (1.005-1.030) 12/23/24 21:18 Urine Protein Trace (Negative) A 12/23/24 21:18 Urine Glucose (UA) Negative (Normal) 12/23/24 21:18 Urine Ketones 2+ (Negative) H 12/23/24 21:18 Urine Blood 2+ (Negative) A 12/23/24 21:18 Urine Nitrate Negative (Negative) 12/23/24 21:18 Urine Bilirubin Negative (Negative) 12/23/24 21:18 Urine Urobilinogen 1.0 mg/dL (Negative) 12/23/24 21:18 Ur Leukocyte Esterase Trace (Negative) A 12/23/24 21:18 Urine RBC 6-10 /hpf (0-2) 12/23/24 21:18 Urine WBC 0-5 /hpf (0-5) 12/23/24 21:18 Ur Squamous Epith Cells 0-5 /hpf (0-5) 12/23/24 21:18 Amorphous Sediment Not Reportable 12/23/24 21:15 Urine Bacteria None seen /hpf (NONE) 12/23/24 21:18 Hyaline Casts 2.46 /lpf 12/23/24 21:18 Adenovirus (PCR) Not detected (NOT DETECT) 12/23/24 21:46 C. pneumoniae DNA (PCR) Not detected (NOT DETECT) 12/23/24 21:46 Coronavirus 229E (PCR) Not detected (NOT DETECT) 12/23/24 21:46 Human Metapneumovir PCR Not detected (NOT DETECT) 12/23/24 21:46 Influenza A (H1) PCR Not detected (NOT DETECT) 12/23/24 21:46 Influ A (H1/09) PCR Not detected (NOT DETECT) 12/23/24 21:46 Influenza A (H3) PCR Not detected (NOT DETECT) 12/23/24 21:46 Influenza Type A (PCR) Not detected (NOT DETECT) 12/23/24 21:46 Influenza Type B (PCR) Not detected (NOT DETECT) 12/23/24 21:46 M. pneumoniae (PCR) Not detected (NOT DETECT) 12/23/24 21:46 Parainfluenza 1 (PCR) Not detected (NOT DETECT) 12/23/24 21:46 Parainfluenza 2 (PCR) Not detected (NOT DETECT) 12/23/24 21:46 Parainfluenza 3 (PCR) Not detected (NOT DETECT) 12/23/24 21:46 Parainfluenza 4 (PCR) Not detected (NOT DETECT) 12/23/24 21:46 RSV Type A (PCR) Not detected (NOT DETECT) 12/23/24 21:46 RSV Type B (PCR) Not detected (NOT DETECT) 12/23/24 21:46 Entero/Rhino (PCR) Not detected (NOT DETECT) 12/23/24 21:46 SARS-CoV-2 (PCR) Not detected (NOT DETECT) 12/23/24 21:46 Discharge Plan Discharge Patient Disposition: Home Clinical Impression: Pruritic rash, Acute dehydration Adverse drug reaction Qualifiers: Encounter type: initial encounter Qualified Code(s): T50.905A - Adverse effect of unspecified drugs, medicaments and biological substances, initial encounter Fever Qualifiers: Fever type: unspecified Qualified Code(s): R50.9 - Fever, unspecified Condition: Stable Prescriptions: New prednisone 20 mg tablet 40 mg PO DAILY 5 Days Qty: 10 0RF No Action levothyroxine [Synthroid] 88 mcg tablet 88 mcg PO DAILY Senna with Docusate Sodium 8.6-50 mg tablet 1 tab-cap PO BID Qty: 30 0RF Discharge Orders: Discharge ED (Routine); Ordered 12/24/24 Ordered By: Andrew Renee Referrals: Aida Gutiérrez MD [Primary Care Provider, Internal Medicine] Discharge Diet: Usual diet Discharge Activity: Resume usual activity Patient Instructions: Dehydration (ED), Acute Rash (ED), Adverse Drug Reaction (ED), Opioid Safety, Pain Management, Patient Portal & Josue Instructions Activity Restrictions/Additional Instructions: Take the steroids as directed. Your prescription was sent electronically to the [facility] pharmacy in [place]. Oibw-qxk-atobfod Benadryl, Zyrtec or Claritin as directed for itching. Zuor-jjz-gdxkkze Tylenol or ibuprofen as directed for fever. Follow-up with your doctor early next week for recheck. Cool compresses or cool oatmeal baths as needed for the itching. Try and avoid hot showers or hot baths as this can make the itching worse. Return to the emergency department with any worsening symptoms. Print Language: Bulgarian Coding Level of Care Code ED [employer]
[2024-12-23 21:36] LABS: Hematocrit 41.7 % (36-47); Hemoglobin 13.40 g/dL (11.27-16.99); Mean Corpuscular HGB Conc 32.1 g/dL (30-55); Mean Corpuscular Hemoglobin 29.3 pg (27-33); Mean Corpuscular Volume 91.2 fl (85-98); Nucleated Red Blood Cells % 0 %; Platelet Count 244 10^3/cmm (157-399); Red Blood Count 4.57 10^6/uL (3.85-5.65); White Blood Count 8.49 10^3/uL (3.29-11.43)
[2024-12-23 21:41] LABS: Glucose Urine UA Negative (Normal); Nitrate Urine Negative (Negative); Specific Gravity, Urine 1.027 (1.005-1.030)
[2024-12-23 21:46] LABS: Add Urine Microscopic? YES
[2024-12-23 22:00] LABS: Alanine Aminotransferase 14 U/L (0-33); Albumin Level 4.2 g/dL (3.5-5.2); Alkaline Phosphatase 90 U/L (35-105); Anion Gap 19.1 (5-19); Aspartate Amino Transferase 19 U/L (0-32); Blood Urea Nitrogen 16 mg/dL (8-23); Calcium 9.5 mg/dL (8.5-10.5); Carbon Dioxide 22 mmol/L (22-29); Chloride 98 mmol/L (98-107); Creatinine Clr Calc Pharmacy 65.4568; Globulin 3.7 g/dL (1.3-4.6); Glucose 114 mg/dL (65-115); Osmolality Calculated 282 mOsm/kg (285-295); Potassium 4.1 mmol/L (3.5-5.1); Sodium 135 mmol/L (136-145); Total Protein 7.9 g/dL (6.6-8.7)
[2024-12-23 23:29] VITALS: BP 122/72; PULSE 84; RESP 16; O2SAT 94
[2024-12-23 23:31] VITALS: BP 111/75; PULSE 83; RESP 16; O2SAT 96
[2024-12-23 23:42] LABS: Coronavirus 229E,HKU1,NL63,OC4 Not Detected (NOT DETECT); Parainfluenza Virus Type 1 Not Detected (NOT DETECT); Parainfluenza Virus Type 2 Not Detected (NOT DETECT); Parainfluenza Virus Type 3 Not Detected (NOT DETECT); Parainfluenza Virus Type 4 Not Detected (NOT DETECT); SARS-COV-2 Not Detected (NOT DETECT)
[2024-12-24 00:26] VITALS: BP 111/75; PULSE 89; O2SAT 97
== END 2024-12-24 00:34 | disposition home or self-care (01) ==
PROVIDERS: Emergency Provider Physician Assistant; PCP Internal Medicine
DX: L29.9 Pruritus, unspecified (principal); E86.0 Dehydration; T50.905A Adverse effect of unspecified drugs, medicaments and biological substances, initial encounter; R50.9 Fever, unspecified; X58.XXXA Exposure to other specified factors, initial encounter
CPT/HCPCS: 36415; 71046; 80053; 81001; 85025; 86140; 87486; 87581; 87633; 96360; 99284; J7030; J7512; Q0163

== ENCOUNTER 2025-02-05 10:33 | Outpatient (CLI) | payer BC, MEDICAID, SELFPAY ==
--- NOTE | 2025-02-05 | MM_ITS ---
WS: [id number] Bilateral screening 3D tomosynthesis digital mammogram, 02/05/2025 10:36 AM Clinical Data: ANNUAL SCREENING Comparison: 11/16/2023, 09/15/2022, 09/20/2017, 09/11/2015, 11/15/2012, 10/09/2005. Findings: No spiculated masses or clustered calcifications are seen. There are no secondary signs of carcinoma. MM/MM scr BI tomosynthesis [id number] Impression: Negative bilateral mammogram unchanged. Recommend annual screening mammograms. BIRADS: 1 - Negative. FOLLOW UP: 1 Year Follow-up DENSITY: There are scattered areas of fibroglandular density. The CAD ends down checker was used
== END 2025-02-05 10:34 | disposition home or self-care (01) ==
LOC: RAD 10:34
PROVIDERS: PCP Internal Medicine; Visit Provider Internal Medicine
DX: Z12.31 Encounter for screening mammogram for malignant neoplasm of breast (principal); R92.323 Mammographic fibroglandular density, bilateral breasts
CPT/HCPCS: 77063; 77067